=== PATIENT | male | born 1960 | race Caucasian/White ===

== ENCOUNTER 2017-01-14 09:07 | Day surgery (SDC) | payer OTHER ==
[~2017-01-14] VITALS: Ht 180.3 cm; Wt 108.4 kg
[2017-01-14 09:59] VITALS: Ht 180.3 cm; Wt 108.4 kg
[2017-01-14] MEDS ORDERED: METF500T4 PO (10:11)
[2017-01-14] MEDS ORDERED: PROPOFOL 60 ML ONE (10:53)
[2017-01-14] MEDS ORDERED: LIDOCAINE 100 MG SYRINGE ONE (10:53)
[2017-01-14 11:14] VITALS: BP 126/80; PULSE 76; RESP 20
--- NOTE | 2017-01-14 13:32 | GILP ---
DATE OF PROCEDURE: 01/14/2017 PROCEDURE: Esophagogastroduodenoscopy with biopsy and dilatation of the esophagus. SURGEON: Alok Powell MD INDICATION: A 56-year-old male undergoing this procedure for dysphagia for the last 2 years. Twice he had impaction with food. The purpose of this procedure is to evaluate the upper GI tract and pe rform therapeutic dilatation at the same time. The risk of the procedure, related and unrelated com plications, anesthetic risks, alternatives discussed and informed consent was obtained. DESCRIPTION OF PROCEDURE: The patient was brought to the GI lab, sedated by Dr. Samayoa. After opti mal sedation, scope was passed with much ease into the esophagus. Near the GE junction, there was a stricture with ulceration. The patient had reflux esophagitis with peptic stricture and ulceration . Scope was passed beyond that. The diameter would have been 11 mm. Advanced further down into th e stomach, gastritis identified. Three biopsies taken to rule out H. pylori infection. Duodenum fi rst and second parts were within normal limits. Retroversion in the stomach was normal. Scope was straightened out. Dilator about 12 to 15 mm appropriately positioned, initially dilated up to 12 mm , then up to 13.5 mm for almost 1 minute. After that, balloon was deflated and there was some oozin g seen. No tear was identified. The patient tolerated the procedure very well, and scope was remov ed successfully. IMPRESSION 1. 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 2. Esophageal ulceration. 3. Hiatal hernia. 4. Gastritis. 5. Normal duodenum. PLAN: At this point, is to double the dose of PPI, refrain from alcohol. This patient is also a go od candidate for Axios stent luminal opposing, so with that we can dilate the GE junction and the st ricture permanently without frequently dilating with CRE balloon. Dictated By: ALOK POWELL MD PJ/HOMERO Conf#: [id number] DID#: [id number] CC: SERJIO ROSALES MD; ALOK POWELL MD;*EndCC*
== END 2017-01-14 16:53 | disposition home or self-care (01) ==
LOC: GIL 09:07
PROVIDERS: ATTEND Internal Medicine Gastroenterology
DX: K22.2 Esophageal obstruction (principal); K44.9 Diaphragmatic hernia without obstruction or gangrene; K29.70 Gastritis, unspecified, without bleeding; E11.9 Type 2 diabetes mellitus without complications; E66.01 Morbid (severe) obesity due to excess calories; Z68.33 Body mass index [BMI] 33.0-33.9, adult
CPT/HCPCS: 43239; 82962; 88305; 88312; J2001; Z7610